=== PATIENT | female | born 1995 | race Caucasian/White ===

== ENCOUNTER 2020-09-04 07:02 | Outpatient (NON) | payer BC, SELFPAY ==
[2020-09-04 22:00] LABS: SARS-CoV-2 RNA PCR Positive
== END 2020-09-04 07:03 ==
LOC: ANHCOVIDDT 07:09
PROVIDERS: PCP Family Medicine Adolescent Medicine; Visit Provider Physician Assistant
DX: U07.1 COVID-19 (principal)
CPT/HCPCS: 87635; C9803; U0003

== ENCOUNTER 2023-07-09 11:58 | Outpatient (CLI) | payer OTHER, SELFPAY ==
--- NOTE | 2023-07-09 12:06 | ECG_ITS ---
Measurements Intervals [address] Rate: 98 P: 54 NV: 126 QRS: 77 QRSD: 85 T: 12 QT: 364 QTc: 465 Interpretive Statements SINUS RHYTHM WITHIN NORMAL LIMITS NO PREVIOUS ECG AVAILABLE FOR COMPARISON Electronically Signed On 07-10-2023 8:17:08 CDT by Naresh Mae M.D.
== END 2023-07-09 11:59 | disposition home or self-care (01) ==
LOC: ANHCARD 12:01
PROVIDERS: PCP Family Medicine Adolescent Medicine; Visit Provider Obstetrics & Gynecology
DX: O10.919 Unspecified pre-existing hypertension complicating pregnancy, unspecified trimester (principal); Z3A.00 Weeks of gestation of pregnancy not specified
CPT/HCPCS: 93005